=== PATIENT | female | born 1945 | race Caucasian/White ===

== ENCOUNTER 2021-10-28 11:07 | Outpatient (REF) | payer MEDICARE, SELFPAY ==
[2021-10-28 11:28] LABS: MANUAL DIFF FLAG NO
[2021-10-28 12:15] LABS: Basophils Absolute Auto 0.1 X10*3/uL (0.0-0.2); Eosinophils Absolute Auto 0.2 X10*3/uL (0.0-0.4); Eosinophils Percent Auto 1.9 % (0-4); Hematocrit 40.1 % (37.0-47.0); Hemoglobin 13.6 g/dl (12.0-16.0); Imm Gran Abs Auto 0.02 X10*3/uL (0.00-0.03); Imm Gran Pct Auto 0.3 % (0.0-0.4); Lymphocytes Absolute Auto 1.4 X10*3/uL (1.2-4.9); Lymphocytes Percent Auto 17.6 % (20-40); Mean Corpuscular HGB Conc 33.9 g/dl (31.0-35.0); Mean Corpuscular Hemoglobin 32.2 pg (27.0-33.0); Mean Platelet Volume 9.5 fL (9.4-12.3); Monocytes Absolute Auto 0.6 X10*3/uL (0.1-1.2); Monocytes Percent Auto 8.3 % (2-11); Neutrophils Absolute Auto 5.5 x10*3/uL (2.0-8.3); Neutrophils Percent Auto 70.9 % (45-73); Platelet Count 322 X10*3/uL (160-400); Red Blood Count 4.22 X10*6/uL (4.20-5.50); Red Cell Distribution Width 13.2 % (11.0-16.0); White Blood Count 7.7 X10*3/uL (4.8-10.8)
[2021-10-28 12:56] LABS: Erythrocyte Sedimentation Rate 18 MM/HR (0-20)
== END 2021-10-28 11:08 | disposition home or self-care (01) ==
LOC: HO.LAB 11:07
PROVIDERS: PCP Internal Medicine; Visit Provider Hospitalist
DX: J45.40 Moderate persistent asthma, uncomplicated (principal); J31.0 Chronic rhinitis; R05.3 Chronic cough; M41.9 Scoliosis, unspecified
CPT/HCPCS: 36415; 82785; 85025; 85652; 86003; 99202

== ENCOUNTER 2021-11-11 09:02 | Outpatient (REF) | payer MEDICARE, SELFPAY ==
--- NOTE | 2021-11-11 | PFT_ITS ---
Forced vital capacity 77%, FEV1 81% in FEV1/FVC ratio is 78. [id number] 84% and MVV 87%. Post bronchodilator therapy, there is no significant change. Total lung capacity 89%. Residual volume 93%. Diffusion capacity 79%. CONCLUSION: Normal pulmonary function tests. No evidence of obstructive or restrictive pulmonary disorder and no response to bronchodilator therapy. MD KYLER Rodríguez/JUVEL / [id number]
== END 2021-11-11 09:03 | disposition home or self-care (01) ==
LOC: HO.RESP 09:02
PROVIDERS: PCP Internal Medicine; Visit Provider Hospitalist
DX: J44.9 Chronic obstructive pulmonary disease, unspecified (principal)
CPT/HCPCS: 94060; 94727; 94729

== ENCOUNTER → 2021-11-27 08:39 | Outpatient (BNVA) | payer MEDICARE, SELFPAY | PROVIDERS: PCP Internal Medicine; Visit Provider Hospitalist | DX: J45.40 Moderate persistent asthma, uncomplicated (principal); J31.0 Chronic rhinitis; R05.3 Chronic cough; M41.9 Scoliosis, unspecified | CPT/HCPCS: 99212 ==

== ENCOUNTER → 2022-06-03 09:26 | Outpatient (BNVA) | payer MEDICARE, SELFPAY | PROVIDERS: PCP Internal Medicine; Visit Provider Hospitalist | DX: J45.40 Moderate persistent asthma, uncomplicated (principal); J31.0 Chronic rhinitis; M41.9 Scoliosis, unspecified; R05.3 Chronic cough | CPT/HCPCS: 99212 ==

== ENCOUNTER 2022-12-10 08:56 | Outpatient (AMB) | payer MEDICARE, SELFPAY ==
[2022-12-10 09:07] VITALS: BP 124/68; PULSE 85; O2SAT 97; BMI 28.7
--- NOTE | 2022-12-10 09:07 | MHC.OFFVIS ---
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 Allergies adhesive Adverse Reaction (Severe, Verified 12/10/22 09:12) Hives codeine Adverse Reaction (Severe, Verified 12/10/22 09:12) Vomiting latex Adverse Reaction (Severe, Verified 12/10/22 09:12) Hives meperidine [From Demerol] Adverse Reaction (Severe, Verified 12/10/22 09:12) Vomiting nitrofurantoin [From Macrodantin] Adverse Reaction (Severe, Verified 12/10/22 09:12) Rash Penicillins Adverse Reaction (Severe, Verified 12/10/22 09:12) Rash Sulfa (Sulfonamide Antibiotics) Adverse Reaction (Severe, Verified 12/10/22 09:12) Rash Bee Stings Adverse Reaction (Uncoded 12/10/22 09:12) Hives Contrast Dye Adverse Reaction (Uncoded 12/10/22 09:12) Hives HPI HPI Comments History of Present Illness Details The patient is a 77 year woman with a known history of asthma And a pulmonary hamartoma who has been doing otherwise well. She has been treated with pulse Serevent and tiotropium for many years. On this therapy she has done well and she has not required frequent short-acting beta agonist. The patient has not had any recent exacerbations or need for hospitalization. Initially she was taken care of by a local director of curriculum who has now retired. She was placed on inhaled steroid early on, but, the patient did not tolerated due to quickly developing thrush. Therefore she was maintain on the long-acting muscarinic antagonist and long-acting beta agonist without the use of a steroid. This work for her well and she had no difficulties tolerating the therapy. In the meantime she was having I issues and she was prescribed eye drops. The eye drops did have steroids. Apparently from the eye drops she also developed thrush. The patient states that she received the letter from her insurance company Explained that the use of long-acting bronchodilators without a inhaled steroid for the treatment of asthma can resulting poor outcomes and she became significantly alarmed by that. I did reassure her that she has done very well for many years and this cocktail has been effective for her without any evidence of any harm. the patient also describes symptoms of nasal congestion. She does have a postnasal drip. She is not aware of having allergy testing in the past. on further questioning the patient did have surgery for removal of her hematoma. We did personally review her CT scan from 2013 demonstrating the large Hamartoma involving the right lower lobe area. after she had a repeat CT scan of the chest in 2019 demonstrating no evidence of any pulmonary nodules and only postoperative changes. More recently she had a chest x-ray without any acute disease. She does have frequent x-rays. She does have slight elevations of the left hemidiaphragm although this appears to be more related to her scoliosis. 11/27/2021 the patient is here for a pulmonary follow-up visit. Overall she is doing well. She did not will use the ipratropium nasal spray because of the adverse side effects. She does have still nasal congestion. Moderate severity. The patient is not using anything for that right now. We did talk about nasal rinsing. We talked about the Neti bottle and also a nasal saline spray. She is going to start with sprayed 1st. We did look at her allergy she does have allergies to wheeze including rag weed in this is the season. This is likely contributing to her ongoing symptoms. In regards of her airway disease the patient underwent pulmonary function studies personally by me in the office. The patient does not have any evidence of obstructive nor restrictive ventilatory defects. She has a mild diffusion impairment likely secondary to her surgery. The patient does not have any evidence of small airways disease. She continues on the Spiriva and the Serevent. My suspicion is that she does not need to be on 2 long-acting bronchodilators in view of her relatively normal lung capacity and respiratory mechanics. That being said, she has been on Serevent and Spiriva for many years. We did talk about considering cutting down the Serevent some to once a day to see how she does. 06/03/2022 the patient is here for a pulmonary follow-up visit. The patient continues to do well. She did tolerate decreasing the Serevent and she has continued the Spiriva. A she has not had to use her rescue inhaler. Denies any significant shortness of breath. Events: We reviewed her pulmonary function studies demonstrating no evidence of any obstructive airway disease. Explained to her that the studies cannot rule out asthma. The only way we will be doing a methacholine challenge and at that point that will be more academic than anything else. Therefore no need for additional testing. She seems to be tolerating the therapies. She can always consider decreasing the Spiriva to every other day as it is a medication that works for 48 hours. The patient does have a cough but is benign right now. Nonproductive. She will try some Mucinex. If it worsens she will call the office. And if is not getting any better she will get an x-ray in call me. Otherwise will follow-up in 6 months. 12/10/2022 the patient is here for a pulmonary follow-up visit. Overall the patient has been doing well. She is been able to cut down the Serevent to daily. Also considering decreasing the Spiriva to every other day. I did encourage her to do so. Her pulmonary function studies that she has last time were reassuring. She does have some degree of restriction likely due to her significant scoliosis wishes to be getting worse. [facility] Medical History (Updated 10/28/21 @ 21:22 by Bam Rojo MD) Scoliosis Chronic cough Chronic rhinitis Hamartoma Social History (Updated 10/28/21 @ 10:28 by KIRIT Tong) Patient Tobacco Use Status: Former Tobacco user Tobacco use type: Cigarette Years Smoked: 20 Years Review of Systems Const Denies fever(s) Eyes Denies change in vision (no glaucoma) ENT Reports nasal congestion, Reports nasal discharge, Reports post nasal drip and Denies throat swelling Card Denies chest pain Resp Reports cough GI Reports no additional complaints Musc Reports no additional complaints Skin/Breast Denies rash Neuro Reports no additional complaints Aller/Immun Reports seasonal rhinorrhea and Denies throat swelling Physical Exam Vital Signs: Last Vital Signs Pulse 85 12/10/22 09:07 BP 124/68 12/10/22 09:07 Pulse Ox 97 12/10/22 09:07 Oxygen Delivery Method Room Air 12/10/22 09:07 BMI result Body Mass Index 28.7 Const General: comfortable HEENT Head: Yes normal to inspection General nose exam: Abnormal mucous membranes and turbinates present boggy and no nasal polyps Throat: Yes posterior oropharynx abnormal (small area of erythema of the right post pharynx) Neck Neck: Yes supple Chest Chest palpation & inspection: normal inspection of the chest Resp Effort & Inspection: normal respiratory effort Auscultation: clear to auscultation bilaterally Cardio Rate: regular rate Rhythm: regular rhythm Heart sounds: S1 normal heart sound present and S2 normal heart sound present Skin General skin exam: no rashes or lesions noted Extrem General: Yes no clubbing, cyanosis or edema Assessment & Plan Assessment & Plan (1) Asthma: Code(s): J45.909 - Unspecified asthma, uncomplicated Qualifiers: Asthma complication type: uncomplicated Asthma persistence: persistent Asthma severity: moderate Qualified Code(s): J45.40 - Moderate persistent asthma, uncomplicated (2) Chronic rhinitis: Code(s): J31.0 - Chronic rhinitis (3) Chronic cough: Code(s): R05.3 - Chronic cough (4) Scoliosis: Code(s): M41.9 - Scoliosis, unspecified Qualifiers: Scoliosis type: unspecified scoliosis Spinal region: unspecified Qualified Code(s): M41.9 - Scoliosis, unspecified Plan short-acting beta agonist as needed consider adding Singulair Continue Serevent, daily Consider decreasing Spiriva handihaler to every other day Nasal rinsing for now CXR follow-up in 6 months Orders: Orders XR chest 2V Today J45.40 - Moderate persistent asthma, uncomplicated Coding Level of Care Code Est Pt Level 4 (81833) Diagnoses Moderate persistent asthma without complication J45.40 Asthma complication type: uncomplicated Asthma persistence: persistent Asthma severity: moderate Chronic rhinitis J31.0 Chronic cough R05.3 Scoliosis, unspecified scoliosis type, unspecified spinal region M41.9 Scoliosis type: unspecified scoliosis Spinal region: unspecified Time Spent (min) 17
== END 2022-12-10 09:32 | disposition home or self-care (01) ==
PROVIDERS: PCP Internal Medicine; Visit Provider Hospitalist
DX: J45.40 Moderate persistent asthma, uncomplicated (principal); J31.0 Chronic rhinitis; R05.3 Chronic cough; M41.9 Scoliosis, unspecified
CPT/HCPCS: 99214

== ENCOUNTER → 2022-12-10 08:56 | Outpatient (BNVA) | payer MEDICARE, SELFPAY | PROVIDERS: PCP Internal Medicine; Visit Provider Hospitalist | DX: J45.40 Moderate persistent asthma, uncomplicated (principal); J31.0 Chronic rhinitis; R05.3 Chronic cough; M41.9 Scoliosis, unspecified; Q85.89 Other phakomatoses, not elsewhere classified | CPT/HCPCS: 99212 ==

== ENCOUNTER 2023-06-10 09:13 | Outpatient (AMB) | payer MEDICARE, SELFPAY ==
[2023-06-10 09:22] VITALS: BP 110/60; PULSE 90; O2SAT 98; BMI 27.6
--- NOTE | 2023-06-10 09:22 | MHC.OFFVIS ---
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 Allergies adhesive Adverse Reaction (Severe, Verified 06/10/23 09:25) Hives codeine Adverse Reaction (Severe, Verified 06/10/23 09:25) Vomiting latex Adverse Reaction (Severe, Verified 06/10/23:25) Hives meperidine [From Demerol] Adverse Reaction (Severe, Verified 06/10/23 09:25) Vomiting nitrofurantoin [From Macrodantin] Adverse Reaction (Severe, Verified 06/10/23:25) Rash Penicillins Adverse Reaction (Severe, Verified 06/10/23:25) Rash Sulfa (Sulfonamide Antibiotics) Adverse Reaction (Severe, Verified 06/10/23 09:25) Rash Bee Stings Adverse Reaction (Uncoded 06/10/23:25) Hives Contrast Dye Adverse Reaction (Uncoded 06/10/23:25) Hives HPI HPI Comments History of Present Illness Details The patient is a 77 year woman with a known history of asthma And a pulmonary hamartoma who has been doing otherwise well. She has been treated with pulse Serevent and tiotropium for many years. On this therapy she has done well and she has not required frequent short-acting beta agonist. The patient has not had any recent exacerbations or need for hospitalization. 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 She was placed on inhaled steroid early on, but, the patient did not tolerated due to quickly developing thrush. Therefore she was maintain on the long-acting muscarinic antagonist and long-acting beta agonist without the use of a steroid. This work for her well and she had no difficulties tolerating the therapy. In the meantime she was having I issues and she was prescribed eye drops. The eye drops did have steroids. Apparently from the eye drops she also developed thrush. The patient states that she received the letter from her insurance company Explained that the use of long-acting bronchodilators without a inhaled steroid for the treatment of asthma can resulting poor outcomes and she became significantly alarmed by that. I did reassure her that she has done very well for many years and this cocktail has been effective for her without any evidence of any harm. the patient also describes symptoms of nasal congestion. She does have a postnasal drip. She is not aware of having allergy testing in the past. on further questioning the patient did have surgery for removal of her hematoma. We did personally review her CT scan from 2013 demonstrating the large Hamartoma involving the right lower lobe area. after she had a repeat CT scan of the chest in 2019 demonstrating no evidence of any pulmonary nodules and only postoperative changes. More recently she had a chest x-ray without any acute disease. She does have frequent x-rays. She does have slight elevations of the left hemidiaphragm although this appears to be more related to her scoliosis. 11/27/2021 the patient is here for a pulmonary follow-up visit. Overall she is doing well. She did not will use the ipratropium nasal spray because of the adverse side effects. She does have still nasal congestion. Moderate severity. The patient is not using anything for that right now. We did talk about nasal rinsing. We talked about the Neti bottle and also a nasal saline spray. She is going to start with sprayed 1st. We did look at her allergy she does have allergies to wheeze including rag weed in this is the season. This is likely contributing to her ongoing symptoms. In regards of her airway disease the patient underwent pulmonary function studies personally by me in the office. The patient does not have any evidence of obstructive nor restrictive ventilatory defects. She has a mild diffusion impairment likely secondary to her surgery. The patient does not have any evidence of small airways disease. She continues on the Spiriva and the Serevent. My suspicion is that she does not need to be on 2 long-acting bronchodilators in view of her relatively normal lung capacity and respiratory mechanics. That being said, she has been on Serevent and Spiriva for many years. We did talk about considering cutting down the Serevent some to once a day to see how she does. 06/03/2022 the patient is here for a pulmonary follow-up visit. The patient continues to do well. She did tolerate decreasing the Serevent and she has continued the Spiriva. A she has not had to use her rescue inhaler. Denies any significant shortness of breath. Events: We reviewed her pulmonary function studies demonstrating no evidence of any obstructive airway disease. Explained to her that the studies cannot rule out asthma. The only way we will be doing a methacholine challenge and at that point that will be more academic than anything else. Therefore no need for additional testing. She seems to be tolerating the therapies. She can always consider decreasing the Spiriva to every other day as it is a medication that works for 48 hours. The patient does have a cough but is benign right now. Nonproductive. She will try some Mucinex. If it worsens she will call the office. And if is not getting any better she will get an x-ray in call me. Otherwise will follow-up in 6 months. 12/10/2022 the patient is here for a pulmonary follow-up visit. Overall the patient has been doing well. She is been able to cut down the Serevent to daily. Also considering decreasing the Spiriva to every other day. I did encourage her to do so. Her pulmonary function studies that she has last time were reassuring. She does have some degree of restriction likely due to her significant scoliosis wishes to be getting worse. 06/10/2023 The patient is here for pulmonary follow-up visit. She has had an eventful several months. Apparently back in the fall the patient started developing significant epigastric discomfort. She went to the hospital at [facility]. the patient require surgery. Postoperatively the patient did have significant pneumomediastinum. She did have a barium swallow after surgery demonstrating some free of edema of the distal esophagus and GE junction resulting in narrow passage. In addition to that she had a chest x-ray demonstrating a left-sided pleural effusion along with atelectasis and resolution of the pneumomediastinum and subcutaneous air. Breathing ramirez the patient has been feeling better since she had a surgery. Possibly the reflux could have been contributing to her ongoing respiratory complaints. She continues use her respiratory therapy as prescribed. She has not had to use her rescue inhaler. Will go ahead and have her have a repeat chest x-ray to follow-up the pleural effusion. [facility] Medical History (Updated 06/10/23 @ 21:53 by Bam Rojo MD) Pleural effusion Scoliosis Chronic cough Chronic rhinitis Hamartoma Social History (Updated 10/28/21 @ 10:28 by KIRIT Tong) Patient Tobacco Use Status: Former Tobacco user Tobacco use type: Cigarette Years Smoked: 20 Years Review of Systems Const Denies fever(s) and Reports weight loss Eyes Denies change in vision (no glaucoma) ENT Reports nasal congestion, Reports nasal discharge, Reports post nasal drip and Denies throat swelling Card Denies chest pain Resp Reports cough GI Reports as per HPI Musc Reports no additional complaints Skin/Breast Denies rash Neuro Reports no additional complaints Aller/Immun Reports seasonal rhinorrhea and Denies throat swelling Physical Exam Vital Signs: Last Vital Signs Pulse 90 06/10/23 09:22 BP 110/60 06/10/23 09:22 Pulse Ox 98 06/10/23 09:22 Oxygen Delivery Method Room Air 06/10/23 09:22 BMI result Body Mass Index 27.6 Const General: comfortable HEENT Head: Yes normal to inspection General nose exam: Abnormal mucous membranes and turbinates present boggy and no nasal polyps Throat: Yes posterior oropharynx abnormal (small area of erythema of the right post pharynx) Neck Neck: Yes supple Chest Chest palpation & inspection: normal inspection of the chest Resp Effort & Inspection: normal respiratory effort Auscultation: diminished lung sounds Cardio Rate: regular rate Rhythm: regular rhythm Heart sounds: S1 normal heart sound present and S2 normal heart sound present Skin General skin exam: no rashes or lesions noted Extrem General: Yes no clubbing, cyanosis or edema Assessment & Plan Assessment & Plan (1) Asthma: Code(s): J45.909 - Unspecified asthma, uncomplicated Qualifiers: Asthma complication type: uncomplicated Asthma persistence: persistent Asthma severity: moderate Qualified Code(s): J45.40 - Moderate persistent asthma, uncomplicated (2) Chronic rhinitis: Code(s): J31.0 - Chronic rhinitis (3) Chronic cough: Code(s): R05.3 - Chronic cough (4) Scoliosis: Code(s): M41.9 - Scoliosis, unspecified Qualifiers: Scoliosis type: unspecified scoliosis Spinal region: unspecified Qualified Code(s): M41.9 - Scoliosis, unspecified (5) Pleural effusion: Code(s): J90 - Pleural effusion, not elsewhere classified Plan short-acting beta agonist as needed Continue Serevent, daily continue Spiriva handihaler daily Nasal rinsing for now Deep breathing exercises CXR follow-up in 6 months Orders: Orders XR chest 2V Today J90 - Pleural effusion, not elsewhere classified Medications: Refilled salmeterol (Serevent Diskus) 1 inh inhalation BID 90 days 3 ea 3RF Coding Level of Care Code Est Pt Level 4 (04023) Diagnoses Moderate persistent asthma without complication J45.40 Asthma complication type: uncomplicated Asthma persistence: persistent Asthma severity: moderate Chronic rhinitis J31.0 Chronic cough R05.3 Scoliosis, unspecified scoliosis type, unspecified spinal region M41.9 Scoliosis type: unspecified scoliosis Spinal region: unspecified Pleural effusion J90 Time Spent (min) 17
== END 2023-06-10 09:44 | disposition home or self-care (01) ==
PROVIDERS: PCP Internal Medicine; Visit Provider Hospitalist
DX: J45.40 Moderate persistent asthma, uncomplicated (principal); J31.0 Chronic rhinitis; R05.3 Chronic cough; M41.9 Scoliosis, unspecified; J90 Pleural effusion, not elsewhere classified
CPT/HCPCS: 99214

== ENCOUNTER → 2023-06-10 09:13 | Outpatient (BNVA) | payer MEDICARE, SELFPAY | PROVIDERS: PCP Internal Medicine; Visit Provider Hospitalist | DX: J45.40 Moderate persistent asthma, uncomplicated (principal); J90 Pleural effusion, not elsewhere classified; R05.3 Chronic cough; J31.0 Chronic rhinitis; M41.9 Scoliosis, unspecified | CPT/HCPCS: 99212 ==

== ENCOUNTER 2023-12-15 09:07 | Outpatient (REF) | payer MEDICARE, SELFPAY ==
--- NOTE | ~2023-12-15 | XR_ITS ---
EXAMINATION: XR CHEST CLINICAL INFORMATION: Dyspnea COMPARISON: None available. TECHNIQUE: 2 views of the chest were obtained. FINDINGS: Normal cardiomediastinal silhouette. No consolidation, pleural effusion or pneumothorax. Exaggerated kyphotic curvature in the spine. The bones are demineralized. There is mild height loss in several of the mid to lower thoracic vertebral bodies XR/XR chest 2V IMPRESSION: 1. No acute cardiopulmonary process. 2. Osteopenia. 3. Mild height loss in several mid to lower thoracic vertebral bodies. Electronically signed by: Miguel Dyer MD 12/15/2023 12:39 PM EDT
[2023-12-15 10:17] LABS: MANUAL DIFF FLAG NO
[2023-12-15 10:54] LABS: White Blood Count 9.3 X10*3/uL (4.8-10.8)
[2023-12-15 10:55] LABS: Basophils Absolute Auto 0.1 X10*3/uL (0.0-0.2); Basophils Percent Auto 0.5 % (0-2); Eosinophils Absolute Auto 0.1 X10*3/uL (0.0-0.4); Eosinophils Percent Auto 1.1 % (0-4); Hematocrit 40.5 % (37.0-47.0); Hemoglobin 13.7 g/dl (12.0-16.0); Imm Gran Abs Auto 0.03 X10*3/uL (0.00-0.03); Imm Gran Pct Auto 0.3 % (0.0-0.4); Lymphocytes Percent Auto 10.3 % (20-40); Mean Corpuscular HGB Conc 33.8 g/dl (31.0-35.0); Mean Corpuscular Hemoglobin 32.4 pg (27.0-33.0); Mean Corpuscular Volume 95.7 fL (80.0-98.0); Mean Platelet Volume 9.8 fL (9.4-12.3); Monocytes Absolute Auto 0.6 X10*3/uL (0.1-1.2); Monocytes Percent Auto 6.6 % (2-11); Neutrophils Absolute Auto 7.5 x10*3/uL (2.0-8.3); Neutrophils Percent Auto 81.2 % (45-73); Platelet Count 310 X10*3/uL (160-400); Red Blood Count 4.23 X10*6/uL (4.20-5.50); Red Cell Distribution Width 13.6 % (11.0-16.0)
[2023-12-15 11:31] LABS: Erythrocyte Sedimentation Rate 32 MM/HR (0-20)
[2023-12-15 11:34] LABS: Troponin-I High Sensitivity < 2.7 ng/L (<3.5-17.0)
[2023-12-15 11:45] LABS: Anion Gap 10 (12-20); Blood Urea Nitrogen 21 mg/dL (9-16); Carbon Dioxide 28 mmol/L (22-29); Chloride 106 mmol/L (96-108); Estimated Glomerular Filt Rate > 60; Glucose Random 110 mg/dL (60-115); Potassium 4.2 mmol/L (3.3-5.1); Sodium 140 mmol/L (135-145)
== END 2023-12-15 09:08 | disposition home or self-care (01) ==
LOC: HO.LAB 09:07
PROVIDERS: PCP Internal Medicine; Visit Provider Hospitalist
DX: J45.909 Unspecified asthma, uncomplicated (principal); R05.3 Chronic cough; J45.40 Moderate persistent asthma, uncomplicated; J31.0 Chronic rhinitis; M41.9 Scoliosis, unspecified; J90 Pleural effusion, not elsewhere classified; R06.09 Other forms of dyspnea
CPT/HCPCS: 36415; 71046; 80048; 84484; 85025; 85652; 99212

== ENCOUNTER 2023-12-15 09:07 | Outpatient (AMB) | payer MEDICARE, SELFPAY ==
[2023-12-15 09:14] VITALS: BP 134/70; PULSE 90; O2SAT 98; BMI 29.8
--- NOTE | 2023-12-15 09:14 | MHC.OFFVIS ---
Vital Signs 12/15/23 09:14 Height 5 ft 1 in Weight 157 lb 10.088 oz BMI 29.8 BP 134/70 Blood Pressure Location Lt brachial Position Sitting Pulse 90 Pulse Source Pulse Oximeter Pulse Oximetry (%) 98 Oxygen Delivery Method Room Air Intake Visit Reasons: Asthma Switchboard Inspector Required: No Allergies adhesive Adverse Reaction (Severe, Verified 12/15/23 09:17) Hives codeine Adverse Reaction (Severe, Verified 12/15/23 09:17) Vomiting latex Adverse Reaction (Severe, Verified 12/15/23 09:17) Hives meperidine [From Demerol] Adverse Reaction (Severe, Verified 12/15/23 09:17) Vomiting nitrofurantoin [From Macrodantin] Adverse Reaction (Severe, Verified 12/15/23 09:17) Rash Penicillins Adverse Reaction (Severe, Verified 12/15/23 09:17) Rash Sulfa (Sulfonamide Antibiotics) Adverse Reaction (Severe, Verified 12/15/23 09:17) Rash Bee Stings Adverse Reaction (Uncoded 12/15/23 09:17) Hives Contrast Dye Adverse Reaction (Uncoded 12/15/23 09:17) Hives HPI Comments Details: The patient is a 78 year woman with a known history of asthma And a pulmonary hamartoma who has been doing otherwise well. She has been treated with pulse Serevent and tiotropium for many years. On this therapy she has done well and she has not required frequent short-acting beta agonist. The patient has not had any recent exacerbations or need for hospitalization. 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 She was placed on inhaled steroid early on, but, the patient did not tolerated due to quickly developing thrush. Therefore she was maintain on the long-acting muscarinic antagonist and long-acting beta agonist without the use of a steroid. This work for her well and she had no difficulties tolerating the therapy. In the meantime she was having I issues and she was prescribed eye drops. The eye drops did have steroids. Apparently from the eye drops she also developed thrush. The patient states that she received the letter from her insurance company Explained that the use of long-acting bronchodilators without a inhaled steroid for the treatment of asthma can resulting poor outcomes and she became significantly alarmed by that. I did reassure her that she has done very well for many years and this cocktail has been effective for her without any evidence of any harm. the patient also describes symptoms of nasal congestion. She does have a postnasal drip. She is not aware of having allergy testing in the past. on further questioning the patient did have surgery for removal of her hematoma. We did personally review her CT scan from 2013 demonstrating the large Hamartoma involving the right lower lobe area. after she had a repeat CT scan of the chest in 2019 demonstrating no evidence of any pulmonary nodules and only postoperative changes. More recently she had a chest x-ray without any acute disease. She does have frequent x-rays. She does have slight elevations of the left hemidiaphragm although this appears to be more related to her scoliosis. 11/27/2021 the patient is here for a pulmonary follow-up visit. Overall she is doing well. She did not will use the ipratropium nasal spray because of the adverse side effects. She does have still nasal congestion. Moderate severity. The patient is not using anything for that right now. We did talk about nasal rinsing. We talked about the Neti bottle and also a nasal saline spray. She is going to start with sprayed 1st. We did look at her allergy she does have allergies to wheeze including rag weed in this is the season. This is likely contributing to her ongoing symptoms. In regards of her airway disease the patient underwent pulmonary function studies personally by me in the office. The patient does not have any evidence of obstructive nor restrictive ventilatory defects. She has a mild diffusion impairment likely secondary to her surgery. The patient does not have any evidence of small airways disease. She continues on the Spiriva and the Serevent. My suspicion is that she does not need to be on 2 long-acting bronchodilators in view of her relatively normal lung capacity and respiratory mechanics. That being said, she has been on Serevent and Spiriva for many years. We did talk about considering cutting down the Serevent some to once a day to see how she does. 06/03/2022 the patient is here for a pulmonary follow-up visit. The patient continues to do well. She did tolerate decreasing the Serevent and she has continued the Spiriva. A she has not had to use her rescue inhaler. Denies any significant shortness of breath. Events: We reviewed her pulmonary function studies demonstrating no evidence of any obstructive airway disease. Explained to her that the studies cannot rule out asthma. The only way we will be doing a methacholine challenge and at that point that will be more academic than anything else. Therefore no need for additional testing. She seems to be tolerating the therapies. She can always consider decreasing the Spiriva to every other day as it is a medication that works for 48 hours. The patient does have a cough but is benign right now. Nonproductive. She will try some Mucinex. If it worsens she will call the office. And if is not getting any better she will get an x-ray in call me. Otherwise will follow-up in 6 months. 12/10/2022 the patient is here for a pulmonary follow-up visit. Overall the patient has been doing well. She is been able to cut down the Serevent to daily. Also considering decreasing the Spiriva to every other day. I did encourage her to do so. Her pulmonary function studies that she has last time were reassuring. She does have some degree of restriction likely due to her significant scoliosis wishes to be getting worse. 06/10/2023 The patient is here for pulmonary follow-up visit. She has had an eventful several months. Apparently back in the fall the patient started developing significant epigastric discomfort. She went to the hospital at [facility]. the patient require surgery. Postoperatively the patient did have significant pneumomediastinum. She did have a barium swallow after surgery demonstrating some free of edema of the distal esophagus and GE junction resulting in narrow passage. In addition to that she had a chest x-ray demonstrating a left-sided pleural effusion along with atelectasis and resolution of the pneumomediastinum and subcutaneous air. Breathing ramirez the patient has been feeling better since she had a surgery. Possibly the reflux could have been contributing to her ongoing respiratory complaints. She continues use her respiratory therapy as prescribed. She has not had to use her rescue inhaler. Will go ahead and have her have a repeat chest x-ray to follow-up the pleural effusion. 12/15/2023 the patient is here for pulmonary follow-up visit. She is complaining worsening shortness of breath. Moderate severity. Her symptoms worsened after having surgery. Also feeling some discomfort in the mid chest area where she had her surgery. she continues uses Serevent daily and she is also using the Spiriva daily. She does have a cardiology evaluation pending as well. The patient will go ahead and maximize her respiratory therapy by increasing his serving to twice a day and will continue the Spiriva. Will have her get blood work in addition to that she will have a chest x-ray. I do suspect that to some degree her shortness of breath has to do with decreased lung volumes as surgery. I did provide her incentive spirometer and she is going to use that several times a day to try to help her with the lung capacity. I do believe though that based on her comorbidities and just having surgery having a cardiac evaluation is also important. During the visit we did go for brief walking oximetry in her oxygen was within normal limits. [facility] Medical History (Updated 12/15/23 @ 20:47 by Bam Rojo MD) Dyspnea Pleural effusion Scoliosis Chronic cough Chronic rhinitis Hamartoma Social History (Updated 10/28/21 @ 10:28 by KIRIT Tong) Patient Tobacco Use Status: Former Tobacco user Tobacco use type: Cigarette Years Smoked: 20 Years Review of Systems Const Denies fever(s) and Reports weight loss Eyes Denies change in vision (no glaucoma) ENT Reports nasal congestion, Reports nasal discharge, Reports post nasal drip and Denies throat swelling Card Reports chest pain and Reports dyspnea on exertion Resp Reports cough and Reports dyspnea on exertion GI Reports as per HPI Musc Reports no additional complaints Skin/Breast Denies rash Neuro Reports no additional complaints Aller/Immun Reports seasonal rhinorrhea and Denies throat swelling Physical Exam Vital Signs: Last Vital Signs Pulse 90 12/15/23 09:14 BP 134/70 12/15/23 09:14 Pulse Ox 98 12/15/23 09:14 Oxygen Delivery Method Room Air 12/15/23 09:14 BMI result Body Mass Index 29.8 Const General: comfortable HEENT Head: Yes normal to inspection General nose exam: Abnormal mucous membranes and turbinates present boggy and no nasal polyps Throat: Yes posterior oropharynx abnormal (small area of erythema of the right post pharynx) Neck Neck: Yes supple Chest Chest palpation & inspection: normal inspection of the chest Resp Effort & Inspection: normal respiratory effort Auscultation: diminished lung sounds Cardio Rate: regular rate Rhythm: regular rhythm Heart sounds: S1 normal heart sound present and S2 normal heart sound present Skin General skin exam: no rashes or lesions noted Extrem General: Yes no clubbing, cyanosis or edema Assessment & Plan Assessment & Plan (1) Asthma: Code(s): J45.909 - Unspecified asthma, uncomplicated Category: Medical Qualifiers: Asthma complication type: uncomplicated Asthma persistence: persistent Asthma severity: moderate Qualified Code(s): J45.40 - Moderate persistent asthma, uncomplicated (2) Chronic rhinitis: Code(s): J31.0 - Chronic rhinitis Category: Medical (3) Chronic cough: Code(s): R05.3 - Chronic cough Category: Medical (4) Scoliosis: Code(s): M41.9 - Scoliosis, unspecified Category: Medical Qualifiers: Scoliosis type: unspecified scoliosis Spinal region: unspecified Qualified Code(s): M41.9 - Scoliosis, unspecified (5) Pleural effusion: Code(s): J90 - Pleural effusion, not elsewhere classified Category: Medical (6) Dyspnea: Code(s): R06.00 - Dyspnea, unspecified Category: Medical Qualifiers: Dyspnea type: dyspnea on exertion Qualified Code(s): R06.09 - Other forms of dyspnea Plan short-acting beta agonist as needed Continue Serevent, increase BID continue Spiriva handihaler daily Incentive spirometry, Deep breathing exercises Bloodwork Nasal rinsing for now CXR Awaiting cardiology eval PFTs follow-up in 2 months Orders: Orders Troponin-I High Sensitivity Today R06.00 - Dyspnea, unspecified Basic Metabolic Panel Today R06.00 - Dyspnea, unspecified Erythrocyte Sedimentation Rate Today R06.00 - Dyspnea, unspecified XR chest 2V Today R06.00 - Dyspnea, unspecified Complete Blood Count Auto Diff Today R06.00 - Dyspnea, unspecified PFT pulmonary function test Today R06.09 - Other forms of dyspnea Coding Level of Care Code Est Pt Level 4 (64456) Diagnoses Moderate persistent asthma without complication J45.40 Asthma complication type: uncomplicated Asthma persistence: persistent Asthma severity: moderate Chronic rhinitis J31.0 Chronic cough R05.3 Scoliosis, unspecified scoliosis type, unspecified spinal region M41.9 Scoliosis type: unspecified scoliosis Spinal region: unspecified Pleural effusion J90 Dyspnea on exertion R06.09 Dyspnea type: dyspnea on exertion Time Spent (min) 16
== END 2023-12-15 09:41 | disposition home or self-care (01) ==
PROVIDERS: PCP Internal Medicine; Visit Provider Hospitalist
DX: J45.40 Moderate persistent asthma, uncomplicated (principal); J31.0 Chronic rhinitis; R05.3 Chronic cough; M41.9 Scoliosis, unspecified; J90 Pleural effusion, not elsewhere classified; R06.09 Other forms of dyspnea
CPT/HCPCS: 99214

== ENCOUNTER 2024-01-20 08:56 | Outpatient (REF) | payer MEDICARE, SELFPAY ==
--- NOTE | 2024-01-20 08:59 | PFT_ITS ---
Indication asthma Spirometry [FEV1 to FVC 76%; FEV1 1.59 L; FVC 2.1 L. No significant response to bronchodilators noted. Of note the FEF 07/19/2074 down to 64% predicted. Maximum voluntary ventilation 120% predicted] Lung Volumes [Tolerance capacity 78% predicted] Diffusion Capacity [DLCO 89% predicted] Comparisons [None] Interpretation [No obstructive ventilatory defects identified. No significant response to bronchodilators noted. Some evidence of small airways disease. The patient does have a restrictive ventilatory defect consistent with mild restrictive lung disease. Normal diffusing capacity. Clinical correlation warranted.] MTDD
[2024-01-20 13:23] VITALS: PULSE 85; O2SAT 98
== END 2024-01-20 08:57 | disposition home or self-care (01) ==
LOC: HO.RESP 08:56
PROVIDERS: PCP Internal Medicine; Visit Provider Hospitalist
DX: R06.09 Other forms of dyspnea (principal)
CPT/HCPCS: 94010; 94640; 94727; 94729

== ENCOUNTER → 2024-01-20 08:59 | Outpatient (BNV) | payer MEDICARE, SELFPAY | PROVIDERS: PCP Internal Medicine; Visit Provider Hospitalist | DX: R06.09 Other forms of dyspnea (principal) | CPT/HCPCS: 94060; 94727; 94729 ==

== ENCOUNTER 2024-02-05 08:40 | Outpatient (AMB) | payer MEDICARE, SELFPAY ==
[2024-02-05 08:44] VITALS: BP 140/80; PULSE 90; O2SAT 98; BMI 30.8
--- NOTE | 2024-02-05 08:44 | A.OFFVIS_ITS ---
Vital Signs 02/05/24 08:44 Height 5 ft 1 in Weight 163 lb BMI 30.8 BP 140/80 H Blood Pressure Location Lt brachial Position Sitting Pulse 90 Pulse Source Pulse Oximeter Pulse Oximetry (%) 98 Oxygen Delivery Method Room Air Intake Visit Reasons: Asthma Allergies adhesive Adverse Reaction (Severe, Verified 02/05/24 08:48) Hives codeine Adverse Reaction (Severe, Verified 02/05/24 08:48) Vomiting latex Adverse Reaction (Severe, Verified 02/05/24 08:48) Hives meperidine [From Demerol] Adverse Reaction (Severe, Verified 02/05/24 08:48) Vomiting nitrofurantoin [From Macrodantin] Adverse Reaction (Severe, Verified 02/05/24 08:48) Rash Penicillins Adverse Reaction (Severe, Verified 02/05/24 08:48) Rash Sulfa (Sulfonamide Antibiotics) Adverse Reaction (Severe, Verified 02/05/24 0 8:48) Rash Bee Stings Adverse Reaction (Uncoded 02/05/24 08:48) Hives Contrast Dye Adverse Reaction (Uncoded 02/05/24 08:48) Hives HPI Comments Details: The patient is a 78 year woman with a known history of asthma And a pulmonary hamartoma who has been doing otherwise well. She has been treated with pulse Serevent and tiotropium for many years. On this therapy she has done well and she has not required frequent short-acting beta agonist. The patient has not had any recent exacerbations or need for hospitalization. Initially she was taken care of by a local cylinder honer who has now retired. She was placed on inhaled steroid early on, but, the patient did not tolerated due to quickly developing thrush. Therefore she was maintain on the long-acting muscarinic antagonist and long-acting beta agonist without the use of a steroid. This work for her well and she had no difficulties tolerating the therapy. In the meantime she was having I issues and she was prescribed eye drops. The eye drops did have steroids. Apparently from the eye drops she also developed thrush. The patient states that she received the letter from her insurance company Explained that the use of long-acting bronchodilators without a inhaled steroid for the treatment of asthma can resulting poor outcomes and she became significantly alarmed by that. I did reassure her that she has done very well for many years and this cocktail has been effective for her without any evidence of any harm. the patient also describes symptoms of nasal congestion. She does have a postnasal drip. She is not aware of having allergy testing in the past. on further questioning the patient did have surgery for removal of her hematoma. We did personally review her CT scan from 2013 demonstrating the large Hamartoma involving the right lower lobe area. after she had a repeat CT scan of the chest in 2019 demonstrating no evidence of any pulmonary nodules and only postoperative changes. More recently she had a chest x-ray without any acute disease. She does have frequent x-rays. She does have slight elevations of the left hemidiaphragm although this appears to be more related to her scoliosis. 11/27/2021 the patient is here for a pulmonary follow-up visit. Overall she is doing well. She did not will use the ipratropium nasal spray because of the adverse side effects. She does have still nasal congestion. Moderate severity. The patient is not using anything for that right now. We did talk about nasal rinsing. We talked about the Neti bottle and also a nasal saline spray. She is going to start with sprayed 1st. We did look at her allergy she does have allergies to wheeze including rag weed in this is the season. This is likely contributing to her ongoing symptoms. In regards of her airway disease the patient underwent pulmonary function studies personally by me in the office. The patient does not have any evidence of obstructive nor restrictive ventilatory defects. She has a mild diffusion impairment likely secondary to her surgery. The patient does not have any evidence of small airways disease. She continues on the Spiriva and the Serevent. My suspicion is that she does not need to be on 2 long-acting bronchodilators in view of her relatively normal lung capacity and respiratory mechanics. That being said, she has been on Serevent and Spiriva for many years. We did talk about considering cutting down the Serevent some to once a day to see how she does. 06/03/2022 the patient is here for a pulmonary follow-up visit. The patient continues to do well. She did tolerate decreasing the Serevent and she has continued the Spiriva. A she has not had to use her rescue inhaler. Denies any significant shortness of breath. Events: We reviewed her pulmonary function studies demonstrating no evidence of any obstructive airway disease. Explained to her that the studies cannot rule out asthma. The only way we will be doing a methacholine challenge and at that point that will be more academic than anything else. Therefore no need for additional testing. She seems to be tolerating the therapies. She can always consider decreasing the Spiriva to every other day as it is a medication that works for 48 hours. The patient does have a cough but is benign right now. Nonproductive. She will try some Mucinex. If it worsens she will call the office. And if is not getting any better she will get an x-ray in call me. Otherwise will follow-up in 6 months. 12/10/2022 the patient is here for a pulmonary follow-up visit. Overall the patient has been doing well. She is been able to cut down the Serevent to daily. Also considering decreasing the Spiriva to every other day. I did encourage her to do so. Her pulmonary function studies that she has last time were reassuring. She does have some degree of restriction likely due to her significant scoliosis wishes to be getting worse. 06/10/2023 The patient is here for pulmonary follow-up visit. She has had an eventful several months. Apparently back in the fall the patient started developing significant epigastric discomfort. She went to the hospital at [facility]. the patient require surgery. Postoperatively the patient did have significant pneumomediastinum. She did have a barium swallow after surgery demonstrating some free of edema of the distal esophagus and GE junction resulting in narrow passage. In addition to that she had a chest x-ray demonstrating a left-sided pleural effusion along with atelectasis and resolution of the pneumomediastinum and subcutaneous air. Breathing ramirez the patient has been feeling better since she had a surgery. Possibly the reflux could have been contributing to her ongoing respiratory complaints. She continues use her respiratory therapy as prescribed. She has not had to use her rescue inhaler. Will go ahead and have her have a repeat chest x-ray to follow- up the pleural effusion. 12/15/2023 the patient is here for pulmonary follow-up visit. She is complaining worsening shortness of breath. Moderate severity. Her symptoms worsened after having surgery. Also feeling some discomfort in the mid chest area where she had her surgery. she continues uses Serevent daily and she is also using the Spiriva daily. She does have a cardiology evaluation pending as well. The patient will go ahead and maximize her respiratory therapy by increasing his serving to twice a day and will continue the Spiriva. Will have her get blood work in addition to that she will have a chest x-ray. I do suspect that to some degree her shortness of breath has to do with decreased lung volumes as surgery. I did provide her incentive spirometer and she is going to use that several times a day to try to help her with the lung capacity. I do believe though that based on her comorbidities and just having surgery having a cardiac evaluation is also important. During the visit we did go for brief walking oximetry in her oxygen was within normal limits. 02/05/2024 the patient is here for pulmonary follow-up visit. Overall the patient has been feeling better. She did increase the service to twice a day. She has been working on her incentive spirometer and deep breathing. She also continues Spiriva with good effect. Overall her breathing does feel better. She did undergo pulmonary function studies which I personally reviewed with her. She appears to have a partial obstruction that reverses with bronchodilation. In addition to that she has some restrictive lung disease. This is due from last. Likely related to her surgery. Her x-ray looks reasonable although she does have significant scoliosis and a slightly elevated left hemidiaphragm. No acute disease appreciated. In addition to that she had blood work which is reassuring overall. The patient will follow-up with cardiology. She does have a stress test and echocardiogram scheduled. In addition to that she did follow- up closely with GI. Her PPI was increasing that is helping her as well. Overall the patient does feel better. When she gets the okay from cardiology should start online pulmonary rehabilitation. Also to note she does have some irritation to the nasal mucosa. She has been using Aquaphor. Will go ahead and send some Bactroban to the nose. [facility] Medical History (Updated 02/07/24 @ 16:37 by Bam Rojo MD) Dyspnea Pleural effusion Scoliosis Chronic cough Chronic rhinitis Hamartoma Social History Patient Tobacco Use Status: Former Tobacco user Tobacco use type: Cigarette Years Smoked: 20 Years Review of Systems Const Denies fever(s) and Reports weight loss Eyes Denies change in vision (no glaucoma) ENT Reports nasal congestion, Reports nasal discharge, Reports post nasal drip and Denies throat swelling Card Reports chest pain and Reports dyspnea on exertion Resp Reports cough and Reports dyspnea on exertion GI Reports as per HPI Musc Reports no additional complaints Skin/Breast Denies rash Neuro Reports no additional complaints Aller/Immun Reports seasonal rhinorrhea and Denies throat swelling Physical Exam Vital Signs: Last Vital Signs Pulse 90 02/05/24 08:44 BP 140/80 H 02/05/24 08:44 Pulse Ox 98 02/05/24 08:44 Oxygen Delivery Method Room Air 02/05/24 08:44 BMI result Body Mass Index 30.8 Const General: comfortable HEENT Head: Yes normal to inspection General nose exam: Abnormal mucous membranes and turbinates present erythematous and no nasal polyps Throat: Yes posterior oropharynx abnormal (small area of erythema of the right post pharynx) Neck Neck: Yes supple Chest Chest palpation & inspection: normal inspection of the chest Resp Effort & Inspection: normal respiratory effort Auscultation: diminished lung sounds Cardio Rate: regular rate Rhythm: regular rhythm Heart sounds: S1 normal heart sound present and S2 normal heart sound present Skin General skin exam: no rashes or lesions noted Extrem General: Yes no clubbing, cyanosis or edema Results Reviewed Results Reviewed: [address] [address] Pulmonary Function Report Signed Patient: Mariah Tran MR#: [id number] : 1945 Acct:[id number] Age/Sex: 78 / F ADM Date: 01/20/24 Loc: HO.RESP Attending Dr: Bam Rojo MD Ordering Physician: Bam Rojo MD Date of Service: 01/20/24 Procedure(s): PFT pulmonary function test Accession Number(s): [id number] cc: Bam Rojo MD~ Indication asthma Spirometry [FEV1 to FVC 76%; FEV1 1.59 L; FVC 2.1 L. No significant response to bronchodilators noted. Of note the FEF 07/19/2074 down to 64% predicted. Maximum voluntary ventilation 120% predicted] Lung Volumes [Tolerance capacity 78% predicted] Diffusion Capacity [DLCO 89% predicted] Comparisons [None] Interpretation [No obstructive ventilatory defects identified. No significant response to bronchodilators noted. Some evidence of small airways disease. The patient does have a restrictive ventilatory defect consistent with mild restrictive lung disease. Normal diffusing capacity. 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 TECHNIQUE: 2 views of the chest were obtained. FINDINGS: Normal cardiomediastinal silhouette. No consolidation, pleural effusion or pneumothorax. Exaggerated kyphotic curvature in the spine. The bones are demineralized. There is mild height loss in several of the mid to lower thoracic vertebral bodies XR/XR chest 2V IMPRESSION: 1. No acute cardiopulmonary process. 2. Osteopenia. 3. Mild height loss in several mid to lower thoracic vertebral bodies. Electronically signed by: Miguel Dyer MD 12/15/2023 12:39 PM EDT Dictated By: Miguel Dyer MD Signed By: <Electronically signed by Miguel Dyer MD in OV> 12/15/23 1239 DD/ 1025 TD/TT: 12/15/23 1030 [employer] Analyst: RG Assessment & Plan Assessment & Plan (1) Asthma: Code(s): J45.909 - Unspecified asthma, uncomplicated Category: Medical Qualifiers: Asthma complication type: uncomplicated Asthma persistence: persistent Asthma severity: moderate Qualified Code(s): J45.40 - Moderate persistent asthma, uncomplicated (2) Chronic rhinitis: Code(s): J31.0 - Chronic rhinitis Category: Medical (3) Chronic cough: Code(s): R05.3 - Chronic cough Category: Medical (4) Scoliosis: Code(s): M41.9 - Scoliosis, unspecified Category: Medical Qualifiers: Scoliosis type: unspecified scoliosis Spinal region: unspecified Qualified Code(s): M41.9 - Scoliosis, unspecified (5) Pleural effusion: Comment: resolved Code(s): J90 - Pleural effusion, not elsewhere classified Category: Medical (6) Dyspnea: Code(s): R06.00 - Dyspnea, unspecified Category: Medical Qualifiers: Dyspnea type: dyspnea on exertion Qualified Code(s): R06.09 - Other forms of dyspnea Plan short-acting beta agonist as needed Continue Serevent BID continue Spiriva handihaler daily continue LAMA/LABA combination inhaler in the future Incentive spirometry, Deep breathing exercises bactroban to the nares follow-up in 6 months Medications: New mupirocin 2% 1 appl topical BID 7 days 15 grams 0RF Coding Level of Care Code Est Pt Level 4 (77825) Complex EM visit Add On G2211 Diagnoses Moderate persistent asthma without complication J45.40 Asthma complication type: uncomplicated Asthma persistence: persistent Asthma severity: moderate Chronic rhinitis J31.0 Chronic cough R05.3 Scoliosis, unspecified scoliosis type, unspecified spinal region M41.9 Scoliosis type: unspecified scoliosis Spinal region: unspecified Pleural effusion J90 Dyspnea on exertion R06.09 Dyspnea type: dyspnea on exertion Time Spent (min) 18
--- OUTSIDE RECORDS SUMMARY | 2024-02-10 05:48 | XMS_ITS | Continuity of Care Document ---
Author Organization [facility] Address [address] [place] [address] [address], [address] [place] [address]- Care Team Providers Care Regional Merchandising Manager Name Role Phone Gracie Camarillo MD Primary Care Physician Encounter [facility] Date(s): 12/14/23 - 01/13/24 [facility] [address] [place] [address] Drive [address] [place], [place] [address] Encounter Type: Triage Allergies, Adverse Reactions, Alerts Substance Criticality Severity Reaction Reaction Severity Status codeine nausea Active sulfa drugs unknown Active Bee Stings hives Active erythromycin skin rash Active penicillin throat swelling Act joaquin morphine Active gabapentin hallucinations Acti ve shellfish hives, throat closes Active Macrodantin rash Active Demerol nausea Active Adhesive Bandage skin irritation Active Contrast Dye swelling Active Other Environmental Allergy inhalers with steroids-thrush Active Other Food Allergy 1 Active 1IVP DYE Immunizations Given and Recorded Vaccine Date Status Refusal Reason SARS-CoV-2(COVID-19)mRNA-LNP vac([id number]) 12/31/23 Recorded influenza virus vaccine, inactivated 12/11/23 Avinash rded influenza virus vaccine, inactivated 12/04/22 Avinash rded influenza virus vaccine, inactivated 12/22/21 Avinash rded influenza virus vaccine, inactivated 12/07/20 Avinash rded influenza virus vaccine, inactivated 11/04/19 Avinash rded influenza virus vaccine, inactivated 1 12/02/17 Re corded influenza virus vaccine, inactivated 2 11/09/16 Re corded influenza virus vaccine, inactivated 3 11/17/15 Re corded influenza virus vaccine, inactivated 4 11/03/14 Re corded influenza virus vaccine, inactivated 5 11/04/13 Re corded influenza virus vaccine, inactivated 6 11/21/12 Re corded influenza virus vaccine, inactivated 7 11/21/12 Re corded influenza virus vaccine, inactivated 8 11/10/11 Gi humaira influenza virus vaccine, inactivated 9 11/15/10 Gi humaira influenza virus vaccine, inactivated 10 11/20/09 G iven pneumococcal 20-valent conjugate vaccine 02/06/23 Recorded SARS-CoV-2(COVID-19)mRNA-LNP vac([id number]) 01/16/23 Recorded RSV vaccine preF3, recombinant 12/19/22 Recorded SARS-CoV-2 mRNA ([id number]) vax 12/06/21 Recorded SARS-CoV-2 mRNA (dmejben-fgfd-dnklx) vax 11 04/26/20 Recorded SARS-CoV-2 mRNA (toewrhn-cosl-lbzxt) vax 12 04/05/20 Recorded SARS-CoV-2 (COVID-19) mRNA-1273 vaccine 08/05/21 R ecorded SARS-CoV-2 (COVID-19) mRNA BNT-162b2 vac 12/27/20 Recorded SARS-CoV-2 (COVID-19) mRNA BNT-162b2 vac 04/26/20 Given SARS-CoV-2 (COVID-19) mRNA BNT-162b2 vac 04/05/20 Recorded tetanus-diphtheria toxoids (Td) 13 09/11/20 Given tetanus-diphtheria toxoids (Td) 14 09/20/09 Given tetanus-diphtheria toxoids (Td) 05/31/98 Given Influenza Virus Vaccine (oldterm) 15 11/04/19 Avinash rded Influenza Virus Vaccine (oldterm) 16 11/08/18 Avinash rded Influenza Virus Vaccine (oldterm) 11/08/18 Recorde d Influenza Virus Vaccine (oldterm) 17 12/02/17 Avinash rded Influenza Virus Vaccine (oldterm) 18 11/09/16 Avinash rded Influenza Virus Vaccine (oldterm) 19 11/17/15 Avinash rded Influenza Virus Vaccine (oldterm) 20 11/21/12 Avinash rded Influenza Virus Vaccine (oldterm) 21 11/10/11 Avinash rded Influenza Virus Vaccine (oldterm) 22 11/15/10 Avinash rded Influenza Virus Vaccine (oldterm) 23 12/08/08 Give n zoster vaccine, inactivated 09/26/18 Recorded zoster vaccine, inactivated 09/20/18 Recorded zoster vaccine, inactivated 05/27/18 Recorded Zoster Vaccine Live 24 09/20/18 Recorded Zoster Vaccine Live 25 05/27/18 Recorded pneumococcal 13-valent vaccine 26 02/02/15 Recorde d pneumococcal 23-valent vaccine 12/28/13 Given Zostavax (oldterm) 10/25/09 Given influ virus vac, H1N1, inactive(oldterm) 27 02/20/09 Given Pneumococcal Vaccine (oldterm) 28 12/08/08 Given Pneumococcal Poly (PPV23) (oldterm) 03/18/99 Given 1Result Comment: [facility]12[facility]04/2017] [facility] 2[facility] Comment[facility]11/11[facility]2016[facility] 3Result Comment: [11/22/2015[facility] 4Result Comment: [11/07/2014] high dose 5Result Comment: [11/18/2013] [facility] 6Result Comment: [11/23/2012] [facility]arrison ([id number]) fluvarin multidose vial 2012- 7Location History: [facility] 8Admin Note: [facility] 9Admin Note: [facility] 10Admin Note: given w/o incident 11Result Comment: Route: Intramuscular Self Propelled Hot Mix Roller 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: [employer] 12Result Comment: Route: Intramuscular Self Propelled Hot Mix Roller Operator: Pfizer 13Result Comment: [facility] [id number] Pt tolerated vaccine without incident...[place] 14Admin Note: [employer] INFO SHEET GIVEN 15Result Comment: Route: Intramuscular Self Propelled Hot Mix Roller Operator: [employer] 16Result Comment: Route: Intramuscular Self Propelled Hot Mix Roller Operator: Sanofi P[employer] 17Result Comment: Route: Intramuscular Self Propelled Hot Mix Roller Operator: Sanofi Pasteur 18Result Comment: Route: Intramuscular Self Propelled Hot Mix Roller Operator: Sanofi Pasteur 19Result Comment: Route: Intramuscular Self Propelled Hot Mix Roller Operator: Sanofi P[employer]ur 20Result Comment: Route: Intramuscular Self Propelled Hot Mix Roller Operator: [employer] Edyta (inactive) 21Result Comment: Route: Intramuscular Self Propelled Hot Mix Roller Operator: [employer] Edyta (inactive) 22Result Comment: Route: Intramuscular Self Propelled Hot Mix Roller Operator: [employer] (inactive) 23Admin Note: GIVEN BY ABDIAS 24Result Comment: Route: Intramuscular Self Propelled Hot Mix Roller Operator: [employer] 25Result Comment: Route: Intramuscular Self Propelled Hot Mix Roller Operator: [employer] 26Result Comment: [02/12/2015] [facility] 27Admin Note: H1N1 28Admin Note: GIVEN BY ABDIAS Medications albuterol 0.083% inhalation solution 0 Refills, Maintenance, 05/08/23 2:06:00 PM EST, Partial fill upon patient request if the prescription is for a schedule II opioid drug. Start Date: 05/08/23 Status: Ordered Repeat number: 1 albuterol CFC free 90 mcg/inh inhalation aerosol 2, puffs, Inhalation, Every 6 hours, PRN, # 8.5 Gm, Refills 0, Tot. Refills 0, Maintenance, 03/04/23 2:47:00 PM EST, Aerosol, Route to Pharmacy Electronically, [id number], [facility]/pharmacy #[id number], 155, cm, 03/03/23 10:09:00 EST, Height, 70.2, kg, 02/16/23 20:16:00 EST, Dry Weight Start Date: 03/04/23 Status: Ordered Quantity: 8.5 Unit: g Repeat number: 1 DilTIAZem (Eqv-Cardizem CD) 300 mg/24 hours oral capsule, extended release 0 Refills, Maintenance, 05/08/23 2:05:00 PM EST, Partial fill upon patient request if the prescription is for a schedule II opioid drug. Start Date: 05/08/23 Status: Ordered Repeat number: 1 EpiPen 2-Torsten 0.3 mg injectable kit = 0.3 mg, Intramuscular, Once, may repeat if necessary, # 2 each, 1 Refills, Soft Stop, 11/18/22 3:29:00 PM EDT, [facility]/pharmacy #[id number], 155, cm, 10/13/22 9:22:00 EDT, Height, 72.6, kg, 03/14/21 9:21:00 EST, Dry Weight Start Date: 11/18/22 Status: Ordered Quantity: 2.0 Unit: each Repeat number: 2 omeprazole 20 mg oral enteric coated capsule 1 capsule = 20 mg, By Mouth, Daily, # 90 capsule, 3 Refills, Maintenance, 11/10/23 4:51:00 PM EDT, [facility], 155, cm, 11/09/23 9:45:00 EDT, Height, 70.4, kg, 11/09/23 9:45:00 EDT, Dry Weight Start Date: 11/10/23 Stop Date: 11/04/24 Status: Ordered Quantity: 90.0 Unit: capsule Repeat number: 4 Peak Flow Meter (Adult) See Instructions, # 1 each, Maintenance, use as directed dx- moderate persistent asthma, 04/21/19 11:53:00 AM EST, Compound, 155, cm, 04/21/19 10:06:00 EST, Height Start Date: 04/21/19 Status: Ordered Quantity: 1.0 Unit: each Repeat number: 1 Serevent Diskus 50 mcg inhalation powder 1 DISKUS, Inhalation, Daily, # 180 each, 1 Refills, Maintenance, 08/20/21 9:04:00 AM EDT, [facility], 155, cm, 03/14/21 9:21:00 EST, Height, 72.6, kg, 03/14/21 9:21:00 EST, Dry Weight Start Date: 08/20/21 Stop Date: 02/16/22 Status: Ordered Quantity: 180.0 Unit: each Repeat number: [address] 18 mcg Inhalation Capsule 1 capsule = 18 mcg, Inhalation, Daily, use two inhalations of one capsule for each dose, # 90 each,1 Refills, Maintenance, 08/20/21 9:04:00 AM EDT, [facility], 1 capsule Inhalation Daily,Instr:use two inhalations of one capsule for each dose, 155, cm, 03/14/21 9:21:00 EST, Height, 72.6,kg, 03/14/21 9:21:00 EST, Dry Weight Start Date: 08/20/21 Status: Ordered Quantity: 90.0 Unit: each Repeat number: 2 Problem List Condition Confirmation Course Effective Dates Status Health Status Informant Angina pectoris(HCC) Confirmed Active Asthma Confirmed Active Atrial tachycardia 1 Confirmed 04/16/17 Active 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 Confirmed 09/21/13 Active Benign hypertension Confirmed Active Gastric reflux Confirmed Active Hamartoma of lung Confirmed Active S/P repair of paraesophageal hernia Confirmed 02/16/23 Active H/O Breast cancer, right , IDC, T1 N0, ER positive, 2008 2, 3 Confirmed 01/2009 Active History of nephrolithiasis Confirmed Active Hypercholesterolemia Confirmed Active Mastodynia Confirmed 06/13/11 Active Oral herpes simplex infection Confirmed Active Osteopenia Confirmed Active Palpitations Confirmed 08/22/11 Active Postmenopausal state Confirmed Active Premature ventricular beats Confirmed Active Recurrent oral herpes simplex Confirmed Active Difficult airway for intubation Confirmed Active Spinal stenosis with significant scoliosis Confirmed Active Systolic ejection murmur Confirmed Active Venous insufficiency of leg 4 Confirmed 06/05/21 Active 1Outside Source Comment: Last Assessment & Plan: Improved on diltiazem. Sometimes experiences a slight increase in symptoms with emotional stress. Not bothersome enough to repeat loop monitor. Will continue to monitor. 2Uddated to history of CA S/p lumpectomy & XRT; completed 5 years anastrozole in 2014; no current evidence of disease or recurrence. 3Rt breast CA TIC NO, ER postiive, MT positive, HER-2/dmitry negative 4Outside Source Comment: Last Assessment & Plan: Symptoms well controlled with compression stockings at present. She gets a lot ofexercise during the day and elevates her legs in the evening hours. Social History Social History Type Response Smoking Status Former smoker, quit more than 30 days ago entered on: 09/17/23 Sex Sex Representation Female (finding) Patient Care team information Care Team Personnel Name: Gracie Camarillo MD Position: [facility] Physician - Primary Care Member Role: PCP Address: [address] [place] [address] Adult & Pediatric [address] Telecom: Name: Caterina Spencer RN Position: [facility] RN Member Role: Primary Care Nurse Name: Angelina Arnold RN Position: [facility] RN Member Role: Primary Care Nurse Name: Sona Ramirez RN Position: [facility] Transit Mechanic Member Role: Primary Care Nurse Name: Dalia Mike RN Position: [facility] RN Member Role: Primary Care Nurse Name: Estephania Fernandez RN Position: [facility] RN Member Role: Primary Care Nurse Name: Raul Spears RN Position: [facility] RN Member Role: Primary Care Nurse Name: Zabrina Frazier RN Position: [facility] Transit Mechanic Member Role: Primary Care Nurse Care Team Related Persons Name: TESSA EASTMAN Name: JACKIE PICKETT Name: LYUDMILA GARCIA Name: YARELY GREEN Insurance Providers Guarantor name: [facility] Information #: 1 Payer: [facility] [employer] Member Number: NA Policy Number: NA Group Number: NA
== END 2024-02-05 09:13 | disposition home or self-care (01) ==
PROVIDERS: PCP Internal Medicine; Visit Provider Hospitalist
DX: J45.40 Moderate persistent asthma, uncomplicated (principal); J31.0 Chronic rhinitis; R05.3 Chronic cough; M41.9 Scoliosis, unspecified; J90 Pleural effusion, not elsewhere classified; R06.09 Other forms of dyspnea
CPT/HCPCS: 99214; G2211

== ENCOUNTER → 2024-02-05 08:40 | Outpatient (BNVA) | payer MEDICARE, SELFPAY | PROVIDERS: PCP Internal Medicine; Visit Provider Hospitalist | DX: J45.40 Moderate persistent asthma, uncomplicated (principal); J31.0 Chronic rhinitis; J90 Pleural effusion, not elsewhere classified; R05.3 Chronic cough; M41.9 Scoliosis, unspecified; R06.00 Dyspnea, unspecified; Z79.899 Other long term (current) drug therapy | CPT/HCPCS: 99212 ==

== ENCOUNTER 2024-07-06 09:54 | Outpatient (AMB) | payer MEDICARE, SELFPAY ==
[2024-07-06 09:57] VITALS: BP 136/64; PULSE 86; O2SAT 98; BMI 32.3
--- NOTE | 2024-07-06 09:57 | A.OFFVIS_ITS ---
Vital Signs 07/06/24 09:57 Height 5 ft 1 in Weight 170 lb 13.732 oz BMI 32.3 BP 136/64 Blood Pressure Location Lt brachial Position Sitting Pulse 86 Pulse Source Pulse Oximeter Pulse Oximetry (%) 98 Oxygen Delivery Method Room Air Intake Visit Reasons: Asthma Grooving Lathe Tender Required: No Accompanied by: Self / Same As Patient Allergies adhesive Adverse Reaction (Severe, Verified 07/06/24 10:03) Hives codeine Adverse Reaction (Severe, Verified 07/06/24 10:03) Vomiting latex Adverse Reaction (Severe, Verified 07/06/24 10:03) Hives meperidine [From Demerol] Adverse Reaction (Severe, Verified 07/06/24 10:03) Vomiting nitrofurantoin [From Macrodantin] Adverse Reaction (Severe, Verified 07/06/24 10:03) Rash Penicillins Adverse Reaction (Severe, Verified 07/06/24 10:03) Rash Sulfa (Sulfonamide Antibiotics) Adverse Reaction (Severe, Verified 07/06/24 10:03) Rash Bee Stings Adverse Reaction (Uncoded 02/05/24 08:48) Hives Contrast Dye Adverse Reaction (Uncoded 02/05/24 08:48) Hives HPI Comments Details: The patient is a 78 year woman with a known history of asthma And a pulmonary hamartoma who has been doing otherwise well. She has been treated with pulse Serevent and tiotropium for many years. On this therapy she has done well and she has not required frequent short-acting beta agonist. The patient has not had any recent exacerbations or need for hospitalization. Initially she was taken care of by a local photographer's assistant who has now retired. She was placed on inhaled steroid early on, but, the patient did not tolerated due to quickly developing thrush. Therefore she was maintain on the long-acting muscarinic antagonist and long-acting beta agonist without the use of a steroid. This work for her well and she had no difficulties tolerating the therapy. In the meantime she was having I issues and she was prescribed eye drops. The eye dr enrrique did have steroids. Apparently from the eye drops she also developed thrush. The patient states that she received the letter from her insurance company Explained that the use of long-acting bronchodilators without a inhaled steroid for the treatment of asthma can resulting poor outcomes and she became significantly alarmed by that. I did reassure her that she has done very well for many years and this cocktail has been effective for her without any evidence of any harm. the patient also describes symptoms of nasal congestion. She does have a postnasal drip. She is not aware of having allergy testing in the past. on further questioning the patient did have surgery for removal of her hematoma. We did personally review her CT scan from 2013 demonstrating the large Hamartoma involving the right lower lobe area. after she had a repeat CT scan of the chest in 2019 demonstrating no evidence of any pulmonary nodules and only postoperative changes. More recently she had a chest x-ray without any acute disease. She does have frequent x-rays. She does have slight elevations of the left hemidiaphragm although this appears to be more related to her scoliosis. 11/27/2021 the patient is here for a pulmonary follow-up visit. Overall she is doing well. She did not will use the ipratropium nasal spray because of the adverse side effects. She does have still nasal congestion. Moderate severity. The patient is not using anything for that right now. We did talk about nasal rinsing. We talked about the Neti bottle and also a nasal saline spray. She is going to start with sprayed 1st. We did look at her allergy she does have allergies to wheeze including rag weed in this is the season. This is likely contributing to her ongoing symptoms. In regards of her airway disease the patient underwent pulmonary function studies personally by me in the office. The patient does not have any evidence of obstructive nor restrictive ventilatory defects. She has a mild diffusion impairment likely secondary to her surgery. The patient does not have any evidence of small airways disease. She continues on the Spiriva and the Serevent. My suspicion is that she does not need to be on 2 long-acting bronchodilators in view of her relatively normal lung capacity and respiratory mechanics. That being said, she has been on Serevent and Spiriva for many years. We did talk about considering cutting down the Serevent some to once a day to see how she does. 06/03/2022 the patient is here for a pulmonary follow-up visit. The patient continues to do well. She did tolerate decreasing the Serevent and she has continued the Spiriva. A she has not had to use her rescue inhaler. Denies any significant shortness of breath. Events: We reviewed her pulmonary function studies demonstrating no evidence of any obstructive airway disease. Explained to her that the studies cannot rule out asthma. The only way we will be doing a methacholine challenge and at that point that will be more academic than anything else. Therefore no need for additional testing. She seems to be tolerating the therapies. She can always consider decreasing the Spiriva to every other day as it is a medication that works for 48 hours. The patient does have a cough but is benign right now. Nonproductive. She will try some Mucinex. If it worsens she will call the office. And if is not getting any better she will get an x-ray in call me. Otherwise will follow-up in 6 months. 12/10/2022 the patient is here for a pulmonary follow-up visit. Overall the patient has been doing well. She is been able to cut down the Serevent to daily. Also considering decreasing the Spiriva to every other day. I did encourage her to do so. Her pulmonary function studies that she has last time were reassuring. She does have some degree of restriction likely due to her significant scoliosis wishes to be getting worse. 06/10/2023 The patient is here for pulmonary follow-up visit. She has had an eventful several months. Apparently back in the fall the patient started developing significant epigastric discomfort. She went to the hospital at [facility]. the patient require surgery. Postoperatively the patient did have significant pneumomediastinum. She did have a barium swallow after surgery demonstrating some free of edema of the distal esophagus and GE junction resulting in narrow passage. In addition to that she had a chest x-ray demonstrating a left-sided pleural effusion along with atelectasis and resolution of the pneumomediastinum and subcutaneous air. Breathing ramirez the patient has been feeling better since she had a surgery. Possibly the reflux could have been contributing to her ongoing respiratory complaints. She continues use her respiratory therapy as prescribed. She has not had to use her rescue inhaler. Will go ahead and have her have a repeat chest x-ray to follow- up the pleural effusion. 12/15/2023 the patient is here for pulmonary follow-up visit. She is complaining worsening shortness of breath. Moderate severity. Her symptoms worsened after having surgery. Also feeling some discomfort in the mid chest area where she had her surgery. she continues uses Serevent daily and she is also using the Spiriva daily. She does have a cardiology evaluation pending as well. The patient will go ahead and maximize her respiratory therapy by increasing his serving to twice a day and will continue the Spiriva. Will have her get blood work in addition to that she will have a chest x-ray. I do suspect that to some degree her shortness of breath has to do with decreased lung volumes as surgery. I did provide her incentive spirometer and she is going to use that several times a day to try to help her with the lung capacity. I do believe though that based on her comorbidities and just having surgery having a cardiac evaluation is also important. During the visit we did go for brief walking oximetry in her oxygen was within normal limits. 02/05/2024 the patient is here for pulmonary follow-up visit. Overall the patient has been feeling better. She did increase the service to twice a day. She has been working on her incentive spirometer and deep breathing. She also continues Spiriva with good effect. Overall her breathing does feel better. She did undergo pulmonary function studies which I personally reviewed with her. She appears to have a partial obstruction that reverses with bronchodilation. In addition to that she has some restrictive lung disease. This is due from last. Likely related to her surgery. Her x-ray looks reasonable although she does have significant scoliosis and a slightly elevated left hemidiaphragm. No acute disease appreciated. In addition to that she had blood work which is reassuring overall. The patient will follow-up with cardiology. She does have a stress test and echocardiogram scheduled. In addition to that she did follow- up closely with GI. Her PPI was increasing that is helping her as well. Overall the patient does feel better. When she gets the okay from cardiology should start online pulmonary rehabilitation. Also to note she does have some irritation to the nasal mucosa. She has been using Aquaphor. Will go ahead and send some Bactroban to the nose. 07/06/2024 the patient is here for pulmonary follow-up visit. The patient overall has been doing well. We had increased her Serevent during the last visit and she has been tolerating that. She also continues on the Spiriva HandiHaler. The medications a very expensive for her. She will do better with a combination inhaler such as Anoro. I believe that be the best option for her. I did reassure her that Anoro is very active. She denies any worsening respiratory symptoms right now which is good. She also had a cardiac evaluation and has been doing well from the standpoint as well some her medications were increased. No recent imaging studies to review right now. The patient is doing well will follow-up in 6 months. She will call when she runs out of medications so I can prescribe the Anoro most likely. She will let me know. [facility] Medical History (Updated 02/07/24 @ 16:37 by Bam Rojo MD) Dyspnea Pleural effusion Scoliosis Chronic cough Chronic rhinitis Hamartoma Social History (Updated 07/06/24 @ 10:04 by Xenia Ibrahim CMA) Alcohol intake: former Patient Tobacco Use Status: Former Tobacco user Tobacco use type: Cigarette Years Smoked: 20 Years Review of Systems Const Denies chills, Denies fatigue, Denies fever(s), Denies weight gain and Denies weight loss Eyes Denies change in vision (no glaucoma) ENT Denies dizziness and Denies throat swelling Card Denies chest pain, Denies leg edema, Denies lightheadedness, Denies palpitations, Denies dyspnea on exertion, Denies orthopnea and Denies other Resp Denies cough and Denies dyspnea on exertion GI Denies hematochezia and Denies change in stool character Musc Denies abnormal gait, Denies muscle weakness, Denies numbness, Denies radiating pain into limb and Denies tingling Skin/Breast Denies rash Neuro Denies abnormal gait, Denies dizziness, Denies numbness and Denies tingling Endo Denies fatigue and Denies palpitations Aller/Immun Reports seasonal rhinorrhea and Denies throat swelling Physical Exam Vital Signs: Last Vital Signs Pulse 86 07/06/24 09:57 BP 136/64 07/06/24 09:57 Pulse Ox 98 07/06/24 09:57 Oxygen Delivery Method Room Air 07/06/24 09:57 BMI result Body Mass Index 32.3 Const General: comfortable HEENT Head: Yes normal to inspection General nose exam: Abnormal mucous membranes and turbinates present erythematous and no nasal polyps Throat: Yes posterior oropharynx abnormal (small area of erythema of the right post pharynx) Neck Neck: Yes supple Chest Chest palpation & inspection: normal inspection of the chest Resp Effort & Inspection: normal respiratory effort Auscultation: diminished lung sounds Cardio Rate: regular rate Rhythm: regular rhythm Heart sounds: S1 normal heart sound present and S2 normal heart sound present Skin General skin exam: no rashes or lesions noted Extrem General: Yes no clubbing, cyanosis or edema Assessment & Plan Assessment & Plan (1) Asthma: Code(s): J45.909 - Unspecified asthma, uncomplicated Category: Medical Qualifiers: Asthma complication type: uncomplicated Asthma persistence: persistent Asthma severity: moderate Qualified Code(s): J45.40 - Moderate persistent asthma, uncomplicated (2) Chronic rhinitis: Code(s): J31.0 - Chronic rhinitis Category: Medical (3) Chronic cough: Code(s): R05.3 - Chronic cough Category: Medical (4) Scoliosis: Code(s): M41.9 - Scoliosis, unspecified Category: Medical Qualifiers: Scoliosis type: unspecified scoliosis Spinal region: unspecified Qualified Code(s): M41.9 - Scoliosis, unspecified (5) Dyspnea: Code(s): R06.00 - Dyspnea, unspecified Category: Medical Qualifiers: Dyspnea type: dyspnea on exertion Qualified Code(s): R06.09 - Other forms of dyspnea Plan short-acting beta agonist as needed Continue Serevent BID continue Spiriva handihaler daily consider LAMA/LABA combination inhaler (Anoro) Incentive spirometry, Deep breathing exercises follow-up in 6-8 months Coding Level of Care Code Est Pt Level 4 (85938) Diagnoses Moderate persistent asthma without complication J45.40 Asthma complication type: uncomplicated Asthma persistence: persistent Asthma severity: moderate Chronic rhinitis J31.0 Chronic cough R05.3 Scoliosis, unspecified scoliosis type, unspecified spinal region M41.9 Scoliosis type: unspecified scoliosis Spinal region: unspecified Dyspnea on exertion R06.09 Dyspnea type: dyspnea on exertion Time Spent (min) 16
== END 2024-07-06 10:25 | disposition home or self-care (01) ==
LOC: HO.HPS 09:54
PROVIDERS: PCP Internal Medicine; Visit Provider Hospitalist
DX: J45.40 Moderate persistent asthma, uncomplicated (principal); J31.0 Chronic rhinitis; R05.3 Chronic cough; M41.9 Scoliosis, unspecified; R06.09 Other forms of dyspnea
CPT/HCPCS: 99214

== ENCOUNTER → 2024-07-06 09:54 | Outpatient (BNVA) | payer MEDICARE, SELFPAY | PROVIDERS: PCP Internal Medicine; Visit Provider Hospitalist | DX: J45.40 Moderate persistent asthma, uncomplicated (principal); R05.3 Chronic cough; J31.0 Chronic rhinitis; R06.09 Other forms of dyspnea; M41.9 Scoliosis, unspecified | CPT/HCPCS: 99212 ==